=== PATIENT | male | born 1960 | race Caucasian/White ===

== ENCOUNTER 2022-02-08 20:43 | Emergency (ER) | payer BC, SELFPAY ==
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
[2022-02-08 20:48] VITALS: BP 131/107; PULSE 98; RESP 16; TEMP 36.6; O2SAT 96
--- NOTE | 2022-02-08 22:08 | PC.NURSE ---
Patient taken to radiology at this time.
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
[2022-02-08 22:51] VITALS: BP 116/77; PULSE 85; RESP 17; O2SAT 95
== END 2022-02-08 23:18 | disposition home or self-care (01) ==
PROVIDERS: Emergency Provider Emergency Medicine
DX: R20.2 Paresthesia of skin (principal); S16.1XXA Strain of muscle, fascia and tendon at neck level, initial encounter; S39.92XA Unspecified injury of lower back, initial encounter; V43.53XA Car driver injured in collision with pick-up truck in traffic accident, initial encounter
CPT/HCPCS: 70450; 72100; 72125; 99284